=== PATIENT | male | born 1955 | race Caucasian/White ===

== ENCOUNTER 2019-06-17 09:53 | Outpatient (RCR) | payer OTHER, SELFPAY | END 2019-08-17 13:56 | disposition home or self-care (01) | LOC: PT 09:53 | PROVIDERS: Visit Provider Internal Medicine Cardiovascular Disease | DX: I25.810 Atherosclerosis of coronary artery bypass graft(s) without angina pectoris (principal) | CPT/HCPCS: 93798 ==

== ENCOUNTER → 2021-04-25 07:29 | Outpatient (CLI) | payer OTHER, SELFPAY ==
[2021-04-25 07:46] LABS: Basophils # 0.1 K/mm3 (0-0.2); Basophils % 0.7 % (0.1-2.0); Eosinophils # 0.3 K/mm3 (0.0-0.4); Hemoglobin 16.3 g/dL (14.1-18.0); Lymphocytes # 2.1 K/mm3 (0.7-4.5); Lymphocytes % 23.4 % (10-50); Mean Corpuscular Hemoglobin 32.1 pg (27.0-31.2); Mean Corpuscular Volume 94.5 fl (80-94); Mean Platelet Volume 8.6 fl (7.4-10.4); Monocytes # 0.8 K/mm3 (0.1-1.0); Monocytes % 9.2 % (1.7-9.3); Neutrophils # 5.7 K/mm3 (1.8-7.8); Neutrophils % 63.6 % (37.0-80.0); Platelet Count 202 K/mm3 (142-424); Red Blood Count 5.08 M/mm3 (4.60-6.20); Red Cell Distribution Width 13.1 % (11.5-17.5); White Blood Count 8.9 K/mm3 (4.8-10.8)
[2021-04-25 08:02] LABS: Creatinine,Urine Random 131 mg/dL (Not Estab.)
[2021-04-25 08:05] LABS: Microalbumin/Creatinine Ratio 11.6
[2021-04-25 11:46] LABS: Alanine Aminotransferase 22 U/L (12-78); Albumin Level 4.3 g/dl (3.5-5.0); Albumin/Globulin Ratio 1.5 (1.1-1.8); Anion Gap 10.4 mEq/L (5-15); Aspartate Amino Transferase 26 U/L (17-59); Bilirubin,Total 0.7 mg/dl (0.2-1.3); Blood Urea Nitrogen 12 mg/dl (9-20); Calcium 9.2 mg/dl (8.4-10.2); Carbon Dioxide 25 mmol/L (22.0-30.0); Chloride 109 mmol/L (98-107); Cholesterol 122 mg/dl (140-200); Estimated Glomerular Filt Rate 113 ml/min (>60); GFR (African American) 137 ML/MIN (>60); Globulin 2.8 g/dL (1.3-3.2); Glucose 138 mg/dl (74-100); HDL Cholesterol 30 mg/dl (40-60); Potassium 4.4 mmoL/L (3.5-5.1); Sodium 140 mmol/L (136-145); Total Protein,Serum 7.1 g/dl (6.3-8.2); Triglycerides 146 mg/dl (30-150); VLDL Cholesterol 29 mg/dL (0-40)
[2021-04-25 11:47] LABS: Alkaline Phosphatase 72 U/L (38-126); Chol/HDL Ratio 4.1 (1-3.5)
[2021-04-25 12:00] LABS: Direct LDL Cholesterol 72.96 mg/dL (100-129)
[2021-04-25 12:13] LABS: Prostate Specific Ag Screen 0.7 ng/ml (0.0-4.0)
== END ==
PROVIDERS: Visit Provider Nurse Practitioner Family
DX: I10 Essential (primary) hypertension (principal); E78.00 Pure hypercholesterolemia, unspecified; Z12.5 Encounter for screening for malignant neoplasm of prostate; Z95.1 Presence of aortocoronary bypass graft
CPT/HCPCS: 36415; 80053; 80061; 82043; 82570; 85025; G0103

== ENCOUNTER → 2021-12-18 08:19 | Outpatient (CLI) | payer OTHER, SELFPAY | PROVIDERS: Visit Provider Nurse Practitioner | DX: U07.1 COVID-19 (principal) | CPT/HCPCS: C9803; U0003; U0005 ==

== ENCOUNTER → 2022-02-26 07:10 | Outpatient (CLI) | payer OTHER, SELFPAY ==
--- NOTE | 2022-02-26 07:15 | CT_ITS ---
FINAL REPORT TECHNIQUE: Axial imaging of the inner ears was obtained. Reformatted images were also obtained and reviewed. Low-dose technique was utilized. CLINICAL HISTORY: HEARING LOSS OF RT EAR W/RESTRICTED HEARING OF LT,H/O MASTID FINDINGS: The right internal auditory canal and inner ear are normal. There is total opacification of the right middle ear cavity and mastoid antrum. Erosion is seen of the anterior head of the malleus. There is soft tissue in the medial aspect of the external auditory canal. Probable postoperative changes versus chronic erosions are seen in the lateral aspect of the external auditory canal. There are hypoplastic right mastoid air cells with opacification of several small mastoid air cells. The left internal auditory canal and inner ear structures are normal. There is retraction of the tympanic membrane. Ossicles are intact. External auditory canal is normal. There are hypoplastic left mastoid air cells with opacification of several small mastoid air cells. IMPRESSION: Total opacification of the right middle ear cavity and mastoid antrum with erosion of the anterior head of the malleolus. Postoperative changes versus chronic erosions of the lateral aspect of the right extort auditory canal. Hypoplastic bilateral mastoid air cells with opacification of several small mastoid air cells bilaterally. Reviewed, Interpreted and Dictated by Prince Molina III, MD Transcribed by Charissa Rios Authenticated by Prince Molina III, MD on 02/26/2022 11:23:[address] [facility]
== END ==
PROVIDERS: PCP Family Medicine; Referring Provider Otolaryngology; Visit Provider Otolaryngology
DX: H90.A31 Mixed conductive and sensorineural hearing loss, unilateral, right ear with restricted hearing on the contralateral side (principal); Z98.890 Other specified postprocedural states
CPT/HCPCS: 70480

== ENCOUNTER 2022-09-29 15:47 | Emergency (ER) | payer OTHER, SELFPAY ==
[2022-09-29 15:48] VITALS: BP 148/81; PULSE 56; RESP 18; TEMP 36.7; O2SAT 99; BMI 30.1
--- NOTE | 2022-09-29 15:51 | CT_ITS ---
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 Radiation optimization: All CT scans at this facility use at least one of these dose optimization techniques: automated exposure control; mA and/or kV adjustment per patient size (includes targeted exams where dose is matched to clinical indication); or iterative reconstruction. COMPARISON: None FINDINGS: Bones/joints: Osteopenia and degenerative change. Schmorl's nodes, most prominently about the T7 inferior vertebral endplate. Acute fracture involving the T9 vertebral body. Soft tissues: Extensive ligamentous calcification with localized disruption of the calcified anterior longitudinal ligament at the T9 level. Vasculature: Vascular ectasia and calcification. IMPRESSION: 1. Extensive ligamentous calcification with localized disruption of the calcified anterior longitudinal ligament at the T9 level. 2. Acute fracture involving the T9 vertebral body.
--- NOTE | 2022-09-29 15:51 | CT_ITS ---
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 Radiation optimization: All CT scans at this facility use at least one of these dose optimization techniques: automated exposure control; mA and/or kV adjustment per patient size (includes targeted exams where dose is matched to clinical indication); or iterative reconstruction. COMPARISON: CT HEAD/BRAIN WO CON 09/29/2022 4:02 PM FINDINGS: Bones/joints: Hypertrophic changes are present involving the dens and anterior arch of C1. Large bridging anterior osteophytes throughout the cervical spine. Mild disc space narrowing throughout cervical spine. Lungs: Lung apices are normal. Vasculature: Carotid calcifications are present. Soft tissues: Unremarkable. IMPRESSION: No evidence of cervical spine fracture. Remainder of findings as described.
--- NOTE | 2022-09-29 15:51 | CT_ITS ---
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 Radiation optimization: All CT scans at this facility use at least one of these dose optimization techniques: automated exposure control; mA and/or kV adjustment per patient size (includes targeted exams where dose is matched to clinical indication); or iterative reconstruction. COMPARISON: None FINDINGS: Bones/joints: Osteopenia and degenerative change. Schmorl's nodes and vertebral endplate irregularity. No acute bony injury or malalignment in the lumbar spine. Multilevel lumbar spinal stenosis, of greatest severity at the L3-L4 and L4-L5 levels, in association with disc bulging, ligamentous hypertrophy, and facet arthropathy. Note that assessment of disc, spinal cord, and nerve root pathology is limited in the absence of intrathecal contrast. Soft tissues: Prominent ligamentous calcification. IMPRESSION: 1. No acute bony injury or malalignment in the lumbar spine. 2. Multilevel lumbar spinal stenosis, of greatest severity at the L3-L4 and L4-L5 levels, in association with disc bulging, ligamentous hypertrophy, and facet arthropathy.
--- NOTE | 2022-09-29 15:52 | XR_ITS ---
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 Views: 1 view. COMPARISON: CR (CHEST, CXR AP LANDSCAPE) 04/19/2019 12:51 PM FINDINGS: Lungs: Emphysematous change and interstitial prominence. Pleural spaces: No pleural effusion. Heart/Mediastinum: No cardiomegaly. Bypass surgery. Bones/joints: Degenerative change. Soft tissues: Leftward rotation of the chest. IMPRESSION: Emphysematous change and interstitial prominence.
--- NOTE | 2022-09-29 15:52 | XR_ITS ---
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 Views: 1 or 2 view. COMPARISON: None FINDINGS: Bones/joints: Degenerative change. Contour irregularity involving the right ischial tuberosity, suggesting a healing fracture. CT would be recommended for improved characterization. Soft tissues: Skin folds. IMPRESSION: Contour irregularity involving the right ischial tuberosity, suggesting a healing fracture. CT would be recommended for improved characterization.
--- NOTE | 2022-09-29 15:53 | CT_ITS ---
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 Radiation optimization: All CT scans at this facility use at least one of these dose optimization techniques: automated exposure control; mA and/or kV adjustment per patient size (includes targeted exams where dose is matched to clinical indication); or iterative reconstruction. COMPARISON: CT TEMPORAL BONE WITHOUT 02/26/2022 7:17 AM FINDINGS: Brain: Prominent sulci. Patchy hypodensity of the cerebral white matter which are nonspecific but likely secondary to microangiopathic changes. Cerebral ventricles: The ventricles are prominent secondary to diffuse volume loss/atrophy. Paranasal sinuses: Visualized sinuses are unremarkable. No fluid levels. Mastoid air cells: Sclerotic changes involving the mastoid air cells with fluid in the middle ears. Bones/joints: Unremarkable. Soft tissues: Unremarkable. IMPRESSION: 1. Chronic age related changes but no evidence of acute intracranial pathology. 2. Sclerotic changes involving the mastoid air cells with fluid in the middle ears.
[2022-09-29 16:31] VITALS: BP 144/68; PULSE 56; RESP 20; O2SAT 97
[2022-09-29 17:00] VITALS: BP 134/62; PULSE 56; RESP 20; O2SAT 98
--- NOTE | 2022-09-29 17:01 | CT_ITS ---
PROCEDURE INFORMATION: Exam: CT Pelvis Without Contrast; Skeletal Exam date and time: 09/29/2022 5:06 PM Age: 67 years old Clinical indication: Screening exam; Abnl pelvis x-ray; Patient HX: Abnl R ischial tuberosity on x-ray TECHNIQUE: Imaging protocol: Computed tomography of the pelvis without contrast. Exam focused on the skeleton. Radiation optimization: All CT scans at this facility use at least one of these dose optimization techniques: automated exposure control; mA and/or kV adjustment per patient size (includes targeted exams where dose is matched to clinical indication); or iterative reconstruction. COMPARISON: CR XR PELVIS 1-2V 09/29/2022 4:31 PM FINDINGS: Bones/joints: irregularity of the right ischial tuberosity at the site of attachment of the common hamstrings tendons. There is a 10 mm separation of the fragments from the ischium. Soft tissues: Focus of linear calcification along the superior margin of the penis. Clinically correlate. IMPRESSION: 1. Findings compatible with avulsion fracture of the right ischial tuberosity at the site of attachment of the common hamstrings tendons. 2. Recommendations if there is concern for common hamstrings injury, follow-up with magnetic resonance imaging.
--- NOTE | 2022-09-29 17:29 | [facility].EDGENADL ---
Discharge Plan Disposition Patient Disposition: Home, Self-Care Condition: Fair Prescriptions Prescriptions: New oxycodone-acetaminophen [Percocet] 5-325 mg tablet 1 tab PO Q6H PRN (Reason: pain) Qty: 20 0RF oxycodone-acetaminophen [Percocet] 5-325 mg tablet 1 tab PO Q6H PRN (Reason: pain) Qty: 20 0RF No Action metoprolol succinate 50 mg tablet extended release 24 hr PO amlodipine 5 mg tablet 5 mg PO DAILY Entresto 24-26 mg tablet 1 tab PO BID aspirin [Adult Aspirin Regimen] 81 mg tablet,delayed release (DR/EC) 81 mg PO DAILY nitroglycerin 0.4 mg tablet, sublingual 0.4 mg SUBLINGUAL Q5M PRN Rx Instructions: until response; do not exceed 3 doses per episode cholecalciferol (vitamin D3) 2,000 unit/drop drops 2,000 unit PO DAILY vitamin E (dl, acetate) 400 unit capsule 400 unit PO DAILY omega-3 fatty acids [Fish Oil Concentrate] 1,000 mg capsule 1,000 mg PO BID Referrals Follow up/Referrals: Robin Ayers MD [Primary Care Provider] - See instructions Activity Restrictions/Add. Instructions Additional Instructions/Restrictions: Percocet as needed for pain. Follow-up with orthopedic physician for spinal fracture and avulsion fracture of right ischial tuberosity: Dr. Naz Ramos [facility] [place] [address] [place] [address] OR [facility] [address] [place] [address], [place] [address] Clinical Impressions Clinical Impression: Fracture of thoracic vertebra, closed, Avulsion fracture of ischial tuberosity Instructions Patient Instructions: DI for Vertebral Fracture Discharge ED Provider: Nicolas Villalobos General Adult HPI General Chief complaint: Fall Stated complaint: back pain Time Seen by Provider: 09/29/22 17:00 Mode of Arrival: EMS Source of Information: Patient, EMS and Medical Record Limitations: No Limitations Description of Symptoms (Recalled from ER Triage Doc. by RN): c/o back pain with bruising and redness after falling out of his vehicle this morning around 0800. States he was able to walk into his house but once he sat down could not get back up. Pt hit his head, denies any LOC History of Present Illness HPI narrative: Patient states that around 10 AM he was getting out of the vehicle onto a gravel surface when he lost his footing and fell backwards flat onto his back. He did strike his head but no loss of consciousness. No headache. No neck pain. He complains of pain in his mid back radiating around to his ribs bilaterally. No abdominal injury. No vomiting. No numbness or weakness of the extremities. No loss of bowel or bladder control. No treatment prior to arrival. Pain is currently 08/04. Related Data Home Medications Medication Instructions Recorded Confirmed amlodipine 5 mg tablet 5 mg PO DAILY 12/14/19 12/14/19 aspirin 81 mg tablet,delayed 81 mg PO DAILY 12/14/19 12/14/19 release (Adult Aspirin Regimen) cholecalciferol (vitamin D3) 50 2,000 unit PO DAILY 12/14/19 12/14/19 mcg/drop (2,000 unit/drop) oral drops metoprolol succinate 50 mg PO 12/14/19 12/14/19 tablet,extended release 24 hr nitroglycerin 0.4 mg sublingual 0.4 mg sublingual Q5M PRN 12/14/19 12/14/19 tablet omega-3 fatty acids 1,000 mg 1,000 mg PO BID 12/14/19 12/14/19 capsule (Fish Oil Concentrate) sacubitril 24 mg-valsartan 26 mg 1 tab PO BID 12/14/19 12/14/19 tablet (Entresto) vitamin E (dl, acetate) 180 mg 400 unit PO DAILY 12/14/19 12/14/19 (400 unit) capsule Previous Rx's Medication Instructions Recorded oxycodone-acetaminophen 5 mg-325 1 tab PO Q6H PRN pain #20 tabs 11/05/22 mg tablet (Percocet) oxycodone-acetaminophen 5 mg-325 1 tab PO Q6H PRN pain #20 tabs 11/05/22 mg tablet (Percocet) Allergies Allergy/AdvReac Type Severity Reaction Status Date / Time No Known Allergies Allergy
[2022-09-29 17:30] VITALS: BP 143/61; PULSE 62; RESP 20; O2SAT 97
[2022-09-29 18:00] VITALS: BP 138/67; PULSE 66; RESP 20; O2SAT 94
[2022-09-29 19:17] VITALS: BP 00/00; PULSE 88; RESP 22; TEMP 36.8; O2SAT 100
== END 2022-09-29 19:20 | disposition home or self-care (01) ==
PROVIDERS: Emergency Provider Emergency Medicine; PCP Family Medicine
DX: S22.079A Unspecified fracture of T9-T10 vertebra, initial encounter for closed fracture (principal); S32.611A Displaced avulsion fracture of right ischium, initial encounter for closed fracture; W19.XXXA Unspecified fall, initial encounter; M85.88 Other specified disorders of bone density and structure, other site; M51.44 Schmorl's nodes, thoracic region; E78.5 Hyperlipidemia, unspecified; I10 Essential (primary) hypertension; I25.10 Atherosclerotic heart disease of native coronary artery without angina pectoris
CPT/HCPCS: 70450; 71045; 72125; 72128; 72131; 72170; 72192; 96372; 99285; J2405

== ENCOUNTER → 2022-10-15 15:17 | Outpatient (CLI) | payer OTHER, SELFPAY ==
--- NOTE | 2022-10-15 15:22 | XR_ITS ---
FINAL REPORT TECHNIQUE: 3 views CLINICAL HISTORY: CLOSED F OF 9TH THORACIC VERTEBRA..fall 2 weeks ago onto back FINDINGS: Known T9 compression fracture is not well visualized. There are moderate and severe degenerative changes with multilevel fusion. Bony alignment is normal. IMPRESSION: Known T9 compression fracture not well visualized. Reviewed, Interpreted and Dictated by Prince Molina III, MD Transcribed by Charissa Rios Authenticated and [facility]
== END ==
PROVIDERS: PCP Family Medicine; Visit Provider Family Medicine
DX: S22.079D Unspecified fracture of T9-T10 vertebra, subsequent encounter for fracture with routine healing (principal)
CPT/HCPCS: 72072